=== PATIENT | female | born 1990 | race Caucasian/White ===

== ENCOUNTER → 2020-09-26 14:59 | Outpatient (CLI) | payer OTHER, SELFPAY ==
[2020-09-26 15:24] LABS: Add Manual Diff / Slide Review NO; Basophils Absolute Auto 0 /uL (0-100); Basophils Percent Auto 0.7 % (0-2); Eosinophils Absolute Auto 100 /uL (0-450); Eosinophils Percent Auto 0.9 % (2-4); Hematocrit 38.2 % (36-46); Hemoglobin 13.3 g/dL (12.0-16.0); Lymphocytes Absolute Auto 2200 /uL (1100-4500); Lymphocytes Percent Auto 32.5 % (25-40); Mean Corpuscular HGB Conc 34.7 % (30-36); Mean Corpuscular Volume 89.3 fL (80-100); Monocytes Absolute Auto 500 /uL (0-900); Neutrophils Absolute Auto 4000 /uL (1500-7000); Neutrophils Percent Auto 58.9 % (50-75); Platelet Count 242 X10^3/uL (150-400); Red Blood Cell Count 4.28 X10^6/uL (4.0-5.2); Red Cell Distribution Width 11.9 % (11.6-14.8); White Blood Cell Count 6.8 X10^3/uL (4.5-11.0)
[2020-09-26 15:37] LABS: Alanine Aminotransferase 13 IU/L (<35); Albumin 4.8 g/dL (3.5-5.0); Albumin Globulin Ratio 1.7 (1.0-2.8); Alkaline Phosphatase 67 U/L (38-126); Aspartate Aminotransferase 23 IU/L (14-36); BUN Creatinine Ratio 19.5 (6-22); Bilirubin Total 0.2 mg/dL (0.2-1.3); Blood Urea Nitrogen 16 mg/dL (7-17); Calcium 9.6 mg/dL (8.4-10.2); Carbon Dioxide 29 mmol/L (22-32); Chloride 104 mmol/L (98-107); Estimated Glomerular Filt Rate > 60.0 mL/min (>60); Globulin 2.9 g/dL (1.7-4.1); Glucose 119 mg/dL (70-100); HEMOLYSIS < 15 (0-50); Potassium 4.2 mmol/L (3.4-5.1); Sodium 139 mmol/L (137-145); Total Protein 7.7 g/dL (6.3-8.2)
[2020-09-26 16:23] LABS: TSH w/ Reflex to FT4 1.06 uIU/mL (0.47-4.68)
[2020-09-26 16:25] LABS: Vitamin B12 Reflex MMA if <400 435 pg/mL (239-931)
== END ==
PROVIDERS: PCP Family Medicine; Referring Provider Family Medicine; Visit Provider Family Medicine
DX: Z78.9 Other specified health status (principal); Z31.9 Encounter for procreative management, unspecified; E66.3 Overweight
CPT/HCPCS: 36415; 80053; 82607; 84443; 85025

== ENCOUNTER → 2020-11-03 17:17 | Outpatient (CLI) | payer OTHER, SELFPAY ==
[2020-11-03 18:25] LABS: HCG Quantitative /Beta subunit 84027 mIU/mL
== END ==
PROVIDERS: PCP Family Medicine; Referring Provider Obstetrics & Gynecology; Visit Provider Obstetrics & Gynecology
DX: Z34.81 Encounter for supervision of other normal pregnancy, first trimester (principal)
CPT/HCPCS: 36415; 84702

== ENCOUNTER → 2020-11-05 11:05 | Outpatient (CLI) | payer OTHER, SELFPAY ==
[2020-11-05 13:19] LABS: HCG Quantitative /Beta subunit 86356 mIU/mL
== END ==
PROVIDERS: PCP Family Medicine; Referring Provider Obstetrics & Gynecology; Visit Provider Obstetrics & Gynecology
DX: Z34.81 Encounter for supervision of other normal pregnancy, first trimester (principal); Z3A.01 Less than 8 weeks gestation of pregnancy
CPT/HCPCS: 36415; 84702

== ENCOUNTER → 2020-11-29 14:27 | Outpatient (CLI) | payer OTHER, SELFPAY ==
--- NOTE | 2020-11-29 14:28 | DI.US.S_ITS ---
PROCEDURE: US OB <= 14 WEEKS FETUS INDICATIONS: SAB OUTSIDE/PRIOR DATING DATA: Last menstrual period (LMP): 09/09/2020 LMP-based estimated date of delivery (JUAN): 06/16/2021. First dating scan (date and location): 11/03/2020, [facility] Estimated date of delivery (JUAN) from first dating scan: 06/29/2021. TECHNIQUE: Real-time scanning was performed of the fetus and maternal pelvic organs, with image documentation. Endovaginal scanning was also performed to better visualize the fetus and maternal ovaries. COMPARISON: [facility], US, US OB <= 14 WEEKS FETUS, 11/03/2020, 17:10. FINDINGS: Embryo: Not present. There is an irregular gestational sac measuring 2.6 cm, 7 weeks 4 days. There is no pole or yolk sac currently. Based on the previous ultrasound, the EGA today would be 9 weeks 5 days. Measurement variability in dating: +/- 4 weeks by LMP, +/- 7 days by mean sac diameter (use before 6 weeks gestation if crown-rump length not able to be measured), +/- 5 days by crown-rump length (up to 8 weeks 6 days gestation), +/- 7 days by crown-rump length (up to 13 weeks 6 days gestation). Maternal organs: There is a right ovarian corpus luteal cyst measuring 1.4 x 2.0 cm . IMPRESSION: Nonviable 1st trimester intrauterine . Dictated by: Aureliano Dotson M.D. on 11/29/2020 at 15:24 Approved by: Aureliano Dotson M.D. on 11/29/2020 at 15:28
[2020-11-29 16:45] LABS: HCG Quantitative /Beta subunit 29116 mIU/mL
== END ==
PROVIDERS: PCP Family Medicine; Referring Provider Obstetrics & Gynecology; Visit Provider Obstetrics & Gynecology
DX: O03.9 Complete or unspecified spontaneous abortion without complication (principal)
CPT/HCPCS: 36415; 76801; 76817; 84702; 86850; 86900; 86901

== ENCOUNTER → 2021-05-16 16:31 | Outpatient (CLI) | payer OTHER, SELFPAY ==
[2021-05-16 17:18] LABS: Add Manual Diff / Slide Review NO; Basophils Absolute Auto 100 /uL (0-100); Basophils Percent Auto 0.8 % (0-2); Eosinophils Absolute Auto 100 /uL (0-450); Eosinophils Percent Auto 1.3 % (2-4); Hematocrit 35.2 % (36-46); Hemoglobin 12.1 g/dL (12.0-16.0); Lymphocytes Absolute Auto 2100 /uL (1100-4500); Lymphocytes Percent Auto 21.5 % (25-40); Mean Corpuscular HGB Conc 34.5 % (30-36); Mean Corpuscular Hemoglobin 30.6 PG (26-34); Mean Corpuscular Volume 88.6 fL (80-100); Monocytes Absolute Auto 500 /uL (0-900); Monocytes Percent Auto 5.2 % (3-14); Neutrophils Absolute Auto 6900 /uL (1500-7000); Neutrophils Percent Auto 71.2 % (50-75); Platelet Count 249 X10^3/uL (150-400); Red Blood Cell Count 3.97 X10^6/uL (4.0-5.2); Red Cell Distribution Width 14.4 % (11.6-14.8); White Blood Cell Count 9.6 X10^3/uL (4.5-11.0)
[2021-05-16 18:14] LABS: Hepatitis B Surface Antigen NEGATIVE s/c (NEGATIVE)
[2021-05-16 18:31] LABS: HIV 1 & 2 Ab/Ag 4th Gen Combo NEGATIVE (NEGATIVE); Hep C Virus Ab w/Reflex Quant NEGATIVE s/c (NEGATIVE)
[2021-05-17 08:16] LABS: RPR Screen Non Reactive (Non Reactive)
[2021-05-17 18:15] LABS: Varicella IgG Antibody 155 index (Immune >165)
== END ==
PROVIDERS: PCP Family Medicine; Referring Provider Obstetrics & Gynecology; Visit Provider Obstetrics & Gynecology
DX: Z34.81 Encounter for supervision of other normal pregnancy, first trimester (principal)
CPT/HCPCS: 36415; 80055; 86787; 86803; 86850; 86900; 86901; 87389

== ENCOUNTER → 2021-06-30 17:32 | Outpatient (ROUT) | payer OTHER, SELFPAY ==
[2021-06-30 17:44] LABS: Appearance Urine UA SL CLOUDY; Bilirubin Urine UA NEGATIVE (NEGATIVE); Color Urine UA YELLOW; Glucose Urine UA NEGATIVE (Negative); Ketones Urine UA NEGATIVE (NEGATIVE); Leukocyte Esterase Urine UA NEGATIVE (NEGATIVE); Nitrite Urine UA NEGATIVE (Negative); Occult Blood Urine UA NEGATIVE (Negative); Protein Urine UA NEGATIVE (Negative); Urobilinogen Urine UA 0.2 E.U./dL (0.2)
== END ==
PROVIDERS: PCP Family Medicine; Visit Provider Obstetrics & Gynecology
DX: Z34.81 Encounter for supervision of other normal pregnancy, first trimester (principal)
CPT/HCPCS: 81003; 87086

== ENCOUNTER → 2021-07-17 12:43 | Outpatient (CLI) | payer OTHER, SELFPAY ==
--- NOTE | 2021-07-17 12:45 | DI.US.S_ITS ---
PROCEDURE: US OB >= 14 WEEKS FETUS INDICATIONS: ANATOMY OUTSIDE/PRIOR DATING DATA: Last menstrual period (LMP): Unknown . LMP-based estimated date of delivery (JUAN): Unknown . First dating scan (date and location): 05/16/2021 . Estimated date of delivery (JUAN) from first dating scan: 12/01/2021 . TECHNIQUE: Real-time scanning was performed of the fetus, with image documentation and biometric measurements. Endovaginal scanning: None COMPARISON: [facility], , OB >= 14 WEEKS FETUS, 11/14/2020, 17:02. FINDINGS: General: A single living intrauterine gestation is present. Presentation: Variable. Placenta: Placental position is posterior, without previa. Low lying placenta measures 1.7 cm from the internal os. Amniotic fluid index: 15.4 cm, normal range is 5-24 cm. heart rate: 150 beats per minute. Maternal cervical canal: 6.2 cm long. Normal lower limit is 2.5 cm. biometrics: Biparietal diameter: 4.8 cm, 20 week 4 day Head circumference: 17.5 cm, 20 week 0 day Abdominal circumference: 15.3 cm, 20 week 4 day Femur length: 3.3 cm, 20 week 2 day Estimated gestational age from initial scan: 20 week 3 day Composite gestational age from present scan: 20 week 3 day Estimated weight and percentile: 350 g. Forty-two percentile Measurement variability for biometric dating: +/- 7 days from 14 weeks to 15 weeks 6 days gestation, +/- 10 days from 16 weeks to 21 weeks 6 days gestation, +/- 2 weeks from 22 weeks to 27 weeks 6 days gestation, +/- 3 weeks for 28 weeks gestation or later. weight reference: 4500 g or EFW >90/95% is considered macrosomia or large for gestational age. EFW <10% is small for gestational age. EFW 5% or less is considered intra-uterine growth restriction. Anatomic survey: Neuro: Ventricles are non-dilated at less than 10 mm. Cisterna magna is normal at 3-11 mm. Cerebellum is normal in size and morphology. Nuchal skin fold: Normal at less than 6 mm between 14-21 weeks gestational age. Face: profile not well seen Spine: No evidence for spina bifida. Heart: Not well seen. The right ventricular outflow tract not well seen. Diaphragm: Diaphragm is intact. Stomach: Left-sided stomach is present. Kidneys: No hydronephrosis. Normal is less than 5 mm in 2nd trimester, less than 7 mm in 3rd trimester. Cord: 3-vessel cord has orthotopic insertion. Bladder: Normal in size. Extremities: All 4 extremities identified. IMPRESSION: 1. Single live intrauterine consistent with a 20 week 3 day gestation by current ultrasound. 2. facial profile including the nose and lips, four-chamber heart and right ventricular outflow tract are not well seen due to positioning. 3. Low-lying placenta, 1.7 cm from the internal os. Approved by: Edwin Marie M.D. on 07/17/2021 at 15:13
== END ==
PROVIDERS: PCP Family Medicine; Referring Provider Obstetrics & Gynecology; Visit Provider Obstetrics & Gynecology
DX: O44.42 Low lying placenta NOS or without hemorrhage, second trimester (principal); Z3A.20 20 weeks gestation of pregnancy
CPT/HCPCS: 76811

== ENCOUNTER → 2021-08-29 10:00 | Outpatient (CLI) | payer OTHER, SELFPAY ==
[2021-08-29 12:16] LABS: Hematocrit 30.4 % (36-46); Hemoglobin 10.5 g/dL (12.0-16.0)
[2021-08-29 12:30] LABS: GTT (PREG) 1 Hour PP 50gm Dose 108 mg/dL (76-139)
== END ==
PROVIDERS: PCP Family Medicine; Referring Provider Obstetrics & Gynecology; Visit Provider Obstetrics & Gynecology
DX: Z34.82 Encounter for supervision of other normal pregnancy, second trimester (principal); Z3A.25 25 weeks gestation of pregnancy
CPT/HCPCS: 36415; 82950; 85014; 85018; 86850

== ENCOUNTER → 2021-11-07 16:15 | Outpatient (CLI) | payer OTHER, SELFPAY ==
[2021-11-09 10:54] LABS: Strep Grp B PCR NEG for Grp B Strep
== END ==
PROVIDERS: PCP Family Medicine; Visit Provider Obstetrics & Gynecology
DX: Z34.83 Encounter for supervision of other normal pregnancy, third trimester (principal); Z3A.36 36 weeks gestation of pregnancy
CPT/HCPCS: 87653

== ENCOUNTER 2021-12-07 13:42 | Outpatient (CLI) | payer OTHER, SELFPAY ==
[2021-12-07 16:08] VITALS: BP 126/69; PULSE 94; RESP 20; TEMP 36.5
--- NOTE | 2021-12-07 18:02 | PM.OBTRLD ---
Visit Information Visit Information Date of evaluation: 12/07/21 Primary OB Provider: Dixie Gordon Reason for Evaluation: Yes non-stress test non-stress test reason: other (Postdates) Vital Signs Vital Signs: Vital Signs - 8 hr 12/07/21 16:08 Temperature 97.7 F Pulse Rate 94 H Respiratory Rate 20 Blood Pressure 126/69 [facility] Medical History (Updated 12/04/21 @ 12:33 by Dixie Gordon MD) Acrochordon Blood type, Rh negative Mastitis (~04/2014) Near sighted SAB (spontaneous ) (~11/2020) (spontaneous vaginal delivery) (~02/19/14) (spontaneous vaginal delivery) (~11/21/15) (spontaneous vaginal delivery) (~03/18/18) Surgical History (Updated 10/25/20 @ 12:55 by Le Cortes, RN) History of needle biopsy (~04/2014) [place] teeth extracted Family History (Updated 05/01/21 @ 12:41 by Le Cortes, CHRISTY) Father Diabetes mellitus Hypertension Grandfather History of heart disease Myocardial infarction (lateral wall) Grandmother Pulmonary embolism Grandfather Diabetes mellitus Grandmother No problems noted. Mother No problems noted. Brother No problems noted. Sister No problems noted. 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 bonifacio/buddhism: [employer] special bonifacio needs: No Smoking Status: Never smoker second hand exposure: No alcohol intake: never substance use type: does not use Exam Vital Signs (past 8 hours): - 12/07/21 16:08 Temperature 97.7 F Pulse Rate 94 H Respiratory Rate 20 Blood Pressure 126/69 Evaluation Evaluation Baseline heart rate: 140 Variability: Moderate (11-25) monitor accelerations: Present Monitor Decelerations: Absent Category of Tracing: Reactive Cervical dilation (cm): 6 Cervical effacement (%): 85 station: -1 Diagnosis, Plan/Disposition Plan/Disposition Plan: Assessment: 40+3 wks gestation Advanced cervical dilation Plan: Stripping of membranes OB Disposition: other (Patient out to walk)
== END 2021-12-07 15:15 | disposition home or self-care (01) ==
LOC: LABOR 13:53 → OB 12-08 09:35
PROVIDERS: PCP Family Medicine; Referring Provider Obstetrics & Gynecology; Visit Provider Obstetrics & Gynecology
DX: O48.0 Post-term pregnancy (principal); Z3A.40 40 weeks gestation of pregnancy
CPT/HCPCS: 59025; G0378; G0379

== ENCOUNTER 2021-12-07 19:08 | Outpatient (CLI) | payer OTHER, SELFPAY | END 2021-12-07 20:15 | disposition home or self-care (01) | LOC: OB 12-08 09:34 | PROVIDERS: PCP Family Medicine; Referring Provider Obstetrics & Gynecology; Visit Provider Obstetrics & Gynecology | DX: O48.0 Post-term pregnancy (principal); O47.1 False labor at or after 37 completed weeks of gestation; Z3A.40 40 weeks gestation of pregnancy | CPT/HCPCS: 59025; G0378; G0379 ==

== ENCOUNTER 2021-12-10 22:11 | Outpatient (CLI) | payer OTHER, SELFPAY | END 2021-12-11 00:58 | disposition home or self-care (01) | LOC: OB 12-12 08:28 | PROVIDERS: PCP Family Medicine; Referring Provider Obstetrics & Gynecology; Visit Provider Obstetrics & Gynecology | DX: O48.0 Post-term pregnancy (principal); O47.1 False labor at or after 37 completed weeks of gestation; Z3A.41 41 weeks gestation of pregnancy | CPT/HCPCS: 59025; 84112; G0378; G0379 ==

== ENCOUNTER 2021-12-13 06:36 | Inpatient (IN) | payer OTHER, SELFPAY ==
[2021-12-13 07:45] LABS: Add Manual Diff / Slide Review NO; Basophils Absolute Auto 100 /uL (0-100); Basophils Percent Auto 0.6 % (0-2); Eosinophils Absolute Auto 100 /uL (0-450); Eosinophils Percent Auto 0.7 % (2-4); Hematocrit 32.9 % (36-46); Hemoglobin 11.4 g/dL (12.0-16.0); Lymphocytes Absolute Auto 1900 /uL (1100-4500); Lymphocytes Percent Auto 21.4 % (25-40); Mean Corpuscular HGB Conc 34.6 % (30-36); Mean Corpuscular Hemoglobin 31.7 PG (26-34); Mean Corpuscular Volume 91.5 fL (80-100); Monocytes Absolute Auto 400 /uL (0-900); Monocytes Percent Auto 4.6 % (3-14); Neutrophils Absolute Auto 6500 /uL (1500-7000); Neutrophils Percent Auto 72.7 % (50-75); Platelet Count 187 X10^3/uL (150-400); Red Cell Distribution Width 13.2 % (11.6-14.8); White Blood Cell Count 8.9 X10^3/uL (4.5-11.0)
[2021-12-13 07:51] VITALS: BP 134/82
--- NOTE | 2021-12-13 07:57 | PM.OBHP.IH.1 ---
OB HPI Date/Time Date of admission: 12/13/21 Date Patient Seen: 12/13/21 Time Patient Seen: 07:15 History of Present Condition Chief complaint: Observation of labor JUAN Calculator Estimated Delivery Date Method Current WG Current Estimate 12/04/21 LMP (Certain) 41w 2d Other Estimates 12/01/21 Ultrasound #1 41w 5d : 5 Para: 3 care: good care, initiated at week # (11), number of visits (12) and pounds weight gain (37) Dating criteria OB: LMP confirmed by 1st trimester US Ultrasounds: normal 1st trimester US and normal mid trimester US Obstetrical complications: none Medical complications OB: none Preadmission Labs Last OB Lab Results: Blood Type A Negative 12/13/21 07:10 12/13/21 Antibody Screen Positive 12/13/21 07:10 12/13/21 Hematocrit 32.9 % (36-46) L 12/13/21 07:10 12/13/21 Hemoglobin 11.4 g/dL (12.0-16.0) L 12/13/21 07:10 12/13/21 Hepatitis B Surface Antigen Negative s/c (NEGATIVE) 05/16/21 16:58 05/16/21 Hepatitis C Antibody Negative s/c (NEGATIVE) 05/16/21 16:58 05/16/21 Rubella Antibody 12.0 IU/mL (>15) L 05/16/21 16:58 05/16/21 Varicella-Zoster IgG Antibody 155 index (Immune >165) L 05/16/21 16:58 05/16/21 Glucose 1 Hour 108 mg/dL (76-139) 08/29/21 11:25 08/29/21 Group B Streptococcus (PCR) Neg for grp b strep 11/07/21 16:15 11/07/21 -: Chlamydia screen: negative, Gonorrhea screen: negative and Urine: negative -: PAP smear: Normal External Labs -: Urine: negative Prior (ies) Past Pregnancies Del. Date GA/Weeks Labor Lgth Wt Sex Route Outcome Anesthesia Place Delv Breastfeed Preg Comp Name 02/19/14 41 6 9 lb 2 oz Male vaginal live - full term none [place] 12 months none Kumar 11/21/15 40.5 5 9 lb 8 oz Male vaginal live - full term none [place] 15 months none Y[place] 03/18/18 40.4 4 8 lb 3 oz Male vaginal live - full term none [place] 14 months none Scar 11/14/20 8 spontaneous [place] Delivery Date: 02/19/14 Last Updated by: Le Cortes R.N. *No issues PP. *Issues with BF : Mastitis, Abscess to breast. Delivery Date: 11/21/15 Last Updated by: Le Cortes R.N. *No issues PP. Delivery Date: 03/18/18 Last Updated by: Le Cortes R.N. *True Knot in the cord. Delivery Date: 11/14/20 Last Updated by: Le Cortes R.N. *Baby should have been 9+ wga measured 6 wga. Evaluation Evaluation Baseline heart rate: 135 Variability: Moderate (11-25) monitor accelerations: Present Monitor Decelerations: Absent Contraction Frequency (minutes): 3 Uterine Contraction Intensity: Moderate Status: Category l Dilation (cm): 7 Effacement (%): 95 station: -1 Position of cervix: mid Consistency: soft [facility] Medical History (Updated 12/04/21 @ 12:33 by Dixie Gordon MD) Acrochordon Blood type, Rh negative Mastitis (~04/2014) Near sighted SAB (spontaneous ) (~11/2020) (spontaneous vaginal delivery) (~02/19/14) (spontaneous vaginal delivery) (~11/21/15) (spontaneous vaginal delivery) (~03/18/18) Surgical History (Updated 10/25/20 @ 12:55 by Le Cortes RN) History of needle biopsy (~04/2014) [facility] teeth extracted Family History (Updated 05/01/21 @ 12:41 by Le Cortes RN) Father Diabetes mellitus Hypertension Grandfather History of heart disease Myocardial infarction (lateral wall) Grandmother Pulmonary embolism Grandfather Diabetes mellitus Grandmother No problems noted. Mother No problems noted. Brother No problems noted. Sister No problems noted. 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 bonifacio/buddhist: [employer] special bonifacio needs: No Smoking Status: Never smoker second hand exposure: No alcohol intake: never substance use type: does not use Meds Home Medications and Allergies Home Medications Medication Instructions Recorded Confirmed Type omega-3 fatty acids 1,000 mg 1,000 mg PO DAILY 10/25/20 12/13/21 History capsule (Fish Oil Concentrate) prenat.vits,jose,[id number] 1 tab PO DAILY 10/25/20 12/13/21 History cyanocobalamin (vitamin B-12) 120 mcg PO DAILY ml 05/01/21 12/13/21 History 1,000 mcg/mL oral drops Allergies Allergy/AdvReac Type Severity Reaction Status Date / Time No Known Drug Allergies Allergy Verified 12/13/21 07:35 OB Exam Narrative Exam Narrative: Generally: Patient in moderate distress due to contractions Lungs: Clear to auscultation bilaterally Cardiovascular: Regular rate and rhythm Fundal height: 41 cm Estimated weight: 8-1/2 lb Extremities: Trace edema, 1+ DTRs Objective Labs Result Diagrams: 12/13/21 07:10 Labs: Laboratory Results - last 24 hr 12/13/21 07:10 WBC 8.9 RBC 3.60 L Hgb 11.4 L Hct 32.9 L MCV 91.5 MCH 31.7 MCHC 34.6 RDW 13.2 Plt Count 187 Neut % (Auto) 72.7 Lymph % (Auto) 21.4 L [place] % (Auto) 4.6 Eos % (Auto) 0.7 L Baso % (Auto) 0.6 Neut # (Auto) 6500 Lymph # (Auto) 1900 [place] # (Auto) 400 Eos # (Auto) 100 Baso # (Auto) 100 Assessment and Plan Assessment and Plan Assessment and Plan narrative: Assessment: 31-year-old 5 para 3 at 41-,2/7 weeks gestation in active labor Plan: Expected management to spontaneous vaginal delivery Artificial rupture of membranes when patient allows Time Spent with Patient Total time spent with greater than 50% in coordination of care (as documented) at patient's floor/unit and/or counseling patient:: 15-24 minutes
[2021-12-13 07:59] LABS: COVID19 -Nasal RAPID Negative (Negative)
[2021-12-13] MEDS: OXYTOCIN PREMIX 30 UNIT/500 ML PLAST..BAG 200 UNIT IV (09:50)
--- NOTE | 2021-12-13 10:11 | P.PCNOB_ITS ---
Labor & Delivery Delivery date: 12/13/21 Cervical ripening method: none Induction method: none Delivery augmentation: rupture of membranes Delivery monitor: external FHT Route of delivery: Episiotomy description: None L&D Laceration Description: Perineal - 2nd Degree and Vaginal - 2nd Degree Delivery repair: vicryl (2-0) and chromic (2-0) Estimated blood loss (mL): 100 Anesthesia Type: Local Complications: None [place] Baby 1: gender: Female Presentation: vertex Position: Right Occiput Anterior Placenta delivery description: Spontaneous Cord Vessel Description: 3 Vessels, Nuchal Cord, Loose, Reduced and Clamped/Cut (After stopped pulsing) score (1 min): 8 score (5 min): 9 Narrative: Artificial rupture of membranes at 9:35 a.m. with meconium-stained amniotic fluid. Patient complete and pushed with 2 contractions. At 9:41 a.m., a live female infant delivered spontaneously in the [place] presentation, over an intact perineum. A loose nuchal cord x1 reduced. The remainder of the body delivered without difficulty. The cord was double clamped and cut after it stopped pulsing. Pitocin was given in the IV fluids. Cord bloods were obtained. The placenta delivered intact with a three-vessel cord at 0947. Fundus was massaged to firm. A second-degree perineal/vaginal laceration was repaired in the usual fashion with 2-0 Vicryl and 2 0 chromic, after 10 cc of 1% lidocaine were injected. Estimated blood loss 100 cc. Hemostasis achieved. Apgars 8 at 1 minute and 9 at 5 minutes. . Mom and infant stable to recovery. Plan for aftercare: Routine care
[2021-12-13] MEDS: LANOLIN OINT 7 GM 1 APPLIC TOP (20:56)
[2021-12-14 08:03] LABS: Hematocrit 30.6 % (36-46); Hemoglobin 10.8 g/dL (12.0-16.0)
[2021-12-14 12:15] VITALS: BP 122/80; PULSE 92; RESP 16; TEMP 36.9
[2021-12-14] MEDS: RHO(D) IMMUNE GLOBULIN 1,500 UNIT SYRINGE 1500 UNIT IM (14:20)
== END 2021-12-14 14:45 | disposition home or self-care (01) | DRG 807 ==
PROVIDERS: Admitting Provider Obstetrics & Gynecology; PCP Family Medicine; Referring Provider Obstetrics & Gynecology; Visit Provider Obstetrics & Gynecology
DX: O48.0 Post-term pregnancy (principal); Z37.0 Single live birth; O70.1 Second degree perineal laceration during delivery; Z3A.41 41 weeks gestation of pregnancy; O77.0 Labor and delivery complicated by meconium in amniotic fluid; O69.81X0 Labor and delivery complicated by cord around neck, without compression, not applicable or unspecified; Z20.822 Contact with and (suspected) exposure to COVID-19
CPT/HCPCS: 36415; 59050; 59400; 85014; 85018; 85025; 85461; 86850; 86870; 86900; 86901; 87635; C9803; G0379; J2590; J2790